=== PATIENT | female | born 1965 | race American Indian/Alaskan Native ===

== ENCOUNTER 2018-12-13 19:39 | Emergency (ER) | payer MEDICARE, OTHER ==
[2018-12-14] MEDS ORDERED: PERCOCET 5/325 PO ONE (01:52)
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
[2018-12-14 02:11] VITALS: BP 134/71
== END 2018-12-14 02:11 | disposition home or self-care (01) ==
LOC: ED 19:39
DX: M54.41 Lumbago with sciatica, right side (principal); F17.200 Nicotine dependence, unspecified, uncomplicated; Z98.51 Tubal ligation status
CPT/HCPCS: 99282